=== PATIENT | female | born 2000 | race Two or more races ===

== ENCOUNTER 2024-02-16 01:07 | Emergency (ER) | payer MEDICAID, OTHER ==
[~2024-02-16] VITALS: Ht 170.2 cm; Wt 109.1 kg
[2024-02-16 02:04] LABS: COVID19 ANTIGEN SOFIA FIA NEGATIVE (NEGATIVE); Rapid Influenza B Negative (Negative)
[2024-02-16 02:18] LABS: Rapid Influenza A Positive (Negative)
[2024-02-16] MEDS ORDERED: AMOX875T4 PO (04:03)
[2024-02-16] MEDS ORDERED: OSEL75CA5 PO (04:03)
[2024-02-16] MEDS ORDERED: ACET500T58 PO (04:03)
--- NOTE | 2024-02-16 04:04 | ED.PDOC ---
History of Present Illness HPI Comments 23-YEAR-OLD FEMALE PRESENTS TO ER WITH COMPLAINTS OF FLU-LIKE SYMPTOMS X4 DAYS. PATIENT REPORTS THAT SHE HAS BEEN EXPERIENCING BODY ACHES, BILATERAL EARACHE PAIN AND INTERMITTENT FEVER X4 DAYS. REPORTS THAT SHE LAST TOOK [id number] THERAFLU AT 10:00 P.M. PRIOR TO ARRIVAL TO ER. PATIENT PRESENTS TO ER WITH LOW-GRADE FEVER ON ARRIVAL AT 99.7 F, AMBULATORY, WITH STEADY GAIT, IN NO DISTRESS. SHE RATES HER CURRENT PAIN AN 8/10. DENIES COUGH, SHORTNESS OF BREATH, CHEST PAIN, HEADACHE, DIZZINESS, NAUSEA/VOMITING OR ANY FURTHER SYMPTOMS/COMPLAINTS Chief Complaint: Flu like Time Seen by MD: 01:27 Primary Care Provider: UNKNOWN Reviewed Notes: Nurses Notes, Medications, Allergies Information Source: Patient Mode of Arrival: Ambulatory Past Medical History PAST MEDICAL HISTORY: Denies Surgical History: Cholecystectomy, [employer] History: No Pertinent [employer] History Family History Family History: Unknown Social History Smoker: Non-Smoker Alcohol: Denies ETOH Use Drugs: Denies Drug Use Lives In: Home Constitutional: See HPI EENTM: See HPI Respiratory: No Symptoms Reported Cardiovascular: No Symptoms Reported Gastrointestinal: No Symptoms Reported Genitourinary: No Symptoms Reported Neurological: No Symptoms Reported Musculoskeletal: No Symptoms Reported Integumentary: No Symptoms Reported Allergic/Immunocompromised: others (DENIES) Hematologic/Lymphatic: No Symptoms Reported Endocrine: No Symptoms Reported Psychiatric: No symptoms Reported Physical Exam General Appearance: No Apparent Distress, Obese HEENT: PERRL/EOMI, Pharynx Normal, TMs Normal, Other (MILD ERYTHEMA/BULGING NOTED TO LEFT TM. REMAINDER BILATERAL EAR EXAM-UNREMARKABLE) Neck: Full Range of Motion, Non-Tender, Normal Respiratory: Chest Non-Tender, Lungs Clear, No Accessory Muscle Use, No Respiratory Distress, Normal Breath Sounds Cardiovascular: No Murmur, No Gallop, Regular Rate/Rhythm Breast Exam: Deferred Gastrointestinal: NOT DONE Genitalia: Deferred Pelvic: Deferred Rectal: Deferred Extremities: Normal capillary refill, Normal range of motion Neurologic: Alert, tankroom tender II-XII nml as Tested, No Motor Deficits, Normal Affect, Normal Mood, No Sensory Deficits Cerebellar Function: Normal Reflexes: Normal Skin: Dry, Normal Color, Warm Lymphatic: No Adenopathy Was a procedure done? Was a procedure done?: No Sedation Sedation?: No Fever Differential Dx Differential Diagnosis: Pneumonia, Sepsis, Pharyngitis, Other (COVID-19) X-Ray, Labs, Meds, VS Vital Signs Date Time Temp Pulse Resp B/P (MAP) Pulse Ox O2 Delivery O2 Flow Rate FiO2 02/16/24 01:15 99.7 99 18 113/71 (85) 99 Lab Test 02/16/24 01:18 Range/Units Influenza Type A Antigen Positive Negative Influenza Type B Antigen Negative Negative SARS-CoV-2 Antigen (Rapid) Negative NEGATIVE ALL SWAB RESULTS WERE REVIEWED-INFLUENZA A POSITIVE TAMIFLU 75 MG P.O. ORDERED TYLENOL 650 MG P.O. ORDERED PATIENT IN NO DISTRESS DURING ER VISIT/PRIOR TO DISCHARGE ADVISED TO DRINK PLENTY OF FLUIDS ADVISED TO FOLLOW UP WITH PCP IN 1-2 DAYS PATIENT VERBALIZED UNDERSTANDING AND AGREEABLE WITH CURRENT PLAN OF CARE ADVISED TO RETURN TO ER IMMEDIATELY IF SYMPTOMS WORSEN Time of 1ST Reevaluation: 03:44 Reevaluation 1ST: N/A Patient Education/Counseling: Diagnosis, Treatment, Prognosis, Need For Follow Up Family Education/Counseling: No Family Present Departure 1 Departure Time of Disposition: 04:02 Impression: Primary Impression: Influenza A Additional Impression: Otitis media of left ear Qualified Codes: H66.92 - Otitis media, unspecified, left ear Disposition: 01 HOME / SELF CARE / HOMELESS Condition: Stable e-Prescriptions Oseltamivir Phosphate (Tamiflu) 75 Mg Cap 1 CAP PO BID for 5 Days, #10 CAP 0 Refills Prov: CHADWICK BLANCO 02/16/24 Amoxicillin & Pot Clavulanate (Amoxicillin/Potassium Cla) 875 Mg Tab 1 TAB PO BID for 7 Days, #14 TAB 0 Refills Prov: CHADWICK BLANCO 02/16/24 Acetaminophen (Acetaminophen) 500 Mg Tab 500 MG PO Q4HPRN, #30 TAB 0 Refills Prov: CHADWICK BLANCO 02/16/24 Discharged With: Self Critical Care Note Critical Care Time?: No Stability Stability form required: No Heart Score Heart Score: Heart Score Response (Comments) Value History N/A 0 EKG N/A 0 Age N/A 0 Risk Factors N/A 0 Troponin N/A 0 Total 0 CHADWICK BLANCO Feb 16, 2024 04:04
[2024-02-16] MEDS: ACETAMINOPHEN 325 MG TAB PO ONE (05:00)
[2024-02-16] MEDS: OSELTAMIVIR 75 MG CAP PO ONE (05:01)
[2024-02-16 05:05] VITALS: PULSE 113; RESP 16; O2SAT 98
[2024-02-16 05:06] VITALS: BP 130/82; PULSE 113; RESP 16; TEMP 99; O2SAT 98
== END 2024-02-16 05:07 | disposition home or self-care (01) ==
LOC: EEVIPCON 01:07 → ER 01:07
DX: J10.1 Influenza due to other identified influenza virus with other respiratory manifestations (principal); H66.92 Otitis media, unspecified, left ear; J10.83 Influenza due to other identified influenza virus with otitis media; Z90.49 Acquired absence of other specified parts of digestive tract; Z20.822 Contact with and (suspected) exposure to COVID-19
CPT/HCPCS: 36415; 87426; 87804